=== PATIENT | female | born 1975 | race Caucasian/White ===

== ENCOUNTER 2025-08-14 19:36 | Emergency (ER) | payer MEDICAID ==
[~2025-08-14] VITALS: Ht 154.9 cm; Wt 63.0 kg
[2025-08-14 19:59] VITALS: TEMP 98.1
--- NOTE | 2025-08-14 20:15 | Physician Documentation ---
History of Present Illness Chief Complaint: Vomiting Stated Complaint: DEHYDRATION Time Seen by MD: 20:09 HPI 50-year-old female presents to the ED with a complaint of three days of nausea vomiting, abdominal pain chest pain body aches neck pain. She states she does not smoke marijuana does not drink excessive amounts of alcohol. States she is a diabetic he has never experienced gastroparesis denies any cardiac history. States her primary complaint is body pain nausea vomiting in his being unable to hold any fluids or food down Day of Onset: Aug 14, 2025 Medication Reconciliation Allergies: Coded Allergies: No Known Allergies (Unverified , 08/14/25) Scheduled PRN ONDANSETRON ODT 4mg tablet (Ondansetron Odt), 1 TAB PO Q6H PRN PRN for nausea/vomiting Review of Systems All Other Systems at this time: Reviewed and Negative ROS As stated above in the HPI, otherwise all systems are reviewed and negative. Physical Exam Vital Signs: Temperature: 98.1, Source: Oral, Heart Rate: 115, Respiratory Rate: 16, BP: 179/96, Pulse Oximetry: 95, Weight: 63.000 Oxygen Flow Rate: 0 Physical Exam General: Alert, no apparent distress. Respiratory: Lungs clear, no respiratory distress. Chest: No accessory muscle use. Cardiovascular: Tachycardic Gastrointestinal: Soft, did tender bowel sounds present Extremities: Normal range of motion, no deformity. Neurologic: Oriented x4. Psychiatric: Normal mood and affect. Skin: Normal color, warm and dry. No edema, no ecchymosis. Progress Results/Orders Results/Orders Vital Signs 08/14/25 19:59 Temp 98.1 Pulse 115 Resp 16 B/P (MAP) 179/96 Pulse Ox 95 O2 Flow Rate 0 Laboratory Tests Test 08/14/25 19:53 08/14/25 19:57 Urine Comment CBC Comment Chemistry Comments Medical Decision Making Additional information obtaine: old records Findings 50-year-old female labs were very reassuring with no signs liver enzyme elevation lipase elevation T bili was normal. Based on her complaint I suspect viral gastroenteritis. He received a fluid bolus antiemetics and reported improved symptoms Urinalysis was reassuring for any signs of infection. At this time I am going to discharge her with antiemetics and advice to increase fluid intake and rest Differential Dx:Considerations: Constipation, Ischemic bowel, Urinary obstruction, Urinary tract infection Departure Disposition: HOME / SELF CARE / HOMELESS Impression: Primary Impression: Viral gastroenteritis Condition: Stable Discharge Instructions: Viral Gastroenteritis, Adult Referrals: NO PRIMARY CARE PROVIDER (PCP) Prescriptions ONDANSETRON ODT 4mg tablet (ONDANSETRON ODT) 4 Mg Tab.rapdis 1 TAB PO Q6H PRN PRN for nausea/vomiting for 4 Days, #16 TAB 0 Refills Prov: JOMAR PATEL AUTO DAMAGE APPRAISER 08/14/25 Education Educated: Patient Educated regarding: diagnosis Signature Scribe Signature: david Attestation: Scribed for Jomar Patel Advertising Copy Writer by Jomar Patel - LADAN . 08/14/25 20:15 JOMAR PATEL AUTO DAMAGE APPRAISER Aug 14, 2025 20:15
[2025-08-14 20:19] LABS: URINE HCG NEGATIVE (NEG)
--- NOTE | 2025-08-14 20:20 | ELECTROCARDIOGRAPH REPORT ---
[facility] Test Date: 2025-08-14 Test Time: 20:17:32 Pat Name: JOSE ANGEL SCHWARZ Department: EMERGENCY ROOM Room: Gender: F Process Control Engineer: : [id number] Requested By: ARYAN DAVISON Order Number: [id number] Reading MD: Dr. Kenyon iRver Measurements Intervals [place] Rate: 108 P: 72 W[place]: 124 QRS: 87 QRSD: 95 T: 53 QT: 330 QTc: 443 Interpretive Statements Sinus tachycardia Low voltage, precordial leads Abnormal R-wave progression, early transition Minimal ST depression, inferior leads Electronically Signed On 08-15-2025 19:08:[address] Kenyon River Please click the below link to view image of tracing.
[2025-08-14 20:21] LABS: MEAN PLATELET VOLUME 7.6 FL (7.4-10.4); RED CELL DISTRIBUTION WIDTH 14.3 % (11.5-14.5)
[2025-08-14 20:22] LABS: LEUKOCYTE ESTERASE ,URINE NEGATIVE (Neg); NITRITES, URINE NEGATIVE (Neg); OCCULT BLOOD,URINE NEGATIVE (Neg)
[2025-08-14 20:25] LABS: UA COLLECTION TYPE CLN CATCH MIDSTREAM
[2025-08-14 20:37] LABS: CREATININE 0.67 MG/DL (0.40-0.90); PRO BRAIN NATRIURETIC PEPTIDE 47 PG/ML (0-125); TOTAL CARBON DIOXIDE 30.1 MMOL/L (24-32); eCRCL 74 ML/MIN; eGFR > 90 ML/MIN
[2025-08-14 20:42] LABS: SQUAMOUS EPITHELIAL CELL,UR FEW /LPF (FEW)
[2025-08-14 20:43] LABS: MUCUS STRANDS MODERATE /LPF (Neg); YEAST FEW /HPF (NEGATIVE)
[2025-08-14] MEDS: normal saline 1000ML IV soln IVB ONE (20:48)
[2025-08-14] MEDS: ondansetron/PF 4mg/2ml inj IV ONE (20:50)
[2025-08-14] MEDS: ketorolac trometh 15mg/ml vial 15 MG/ML ML IV ONE (21:21)
[2025-08-14] MEDS ORDERED: ONDA-243 PO (21:32)
[2025-08-14] MEDS: ondansetron 4mg rapidly disintigrating tab PO ONE (21:54)
[2025-08-14 21:57] VITALS: BP 154/83; PULSE 93; RESP 16; O2SAT 99
== END 2025-08-15 00:41 | disposition home or self-care (01) ==
LOC: ER 19:37
DX: A08.4 Viral intestinal infection, unspecified (principal); E11.9 Type 2 diabetes mellitus without complications; E86.0 Dehydration; R00.0 Tachycardia, unspecified; M54.2 Cervicalgia; R06.2 Wheezing
CPT/HCPCS: 36415; 80053; 81001; 81025; 82948; 83690; 83880; 84484; 85025; 93005; 96361; 96374; 96375; 99284; J1885; J2405; J7030

== ENCOUNTER 2025-08-19 15:06 | Emergency (ER) | payer MEDICAID ==
[~2025-08-19] VITALS: Ht 154.9 cm; Wt 63.5 kg
[~2025-08-19 15:06] MED LIST: ONDA-243 PO
[2025-08-19] MEDS: metoclopramide 5 mg/ml inj IV ONE (15:37)
[2025-08-19] MEDS: normal saline 1000ML IV soln IVB ONE (15:37)
[2025-08-19 15:39] LABS: MEAN PLATELET VOLUME 7.6 FL (7.4-10.4); RED CELL DISTRIBUTION WIDTH 14.0 % (11.5-14.5)
[2025-08-19 15:51] LABS: CREATININE 0.80 MG/DL (0.40-0.90); TOTAL CARBON DIOXIDE 29.4 MMOL/L (24-32); eCRCL 62 ML/MIN; eGFR 75 ML/MIN
--- NOTE | 2025-08-19 15:59 | Physician Documentation ---
History of Present Illness ~ Chief Complaint: Vomiting Stated Complaint: VOMITNG/BACK PAIN Time Seen by MD: 15:12 OK to notify your PCP?: Yes Primary Medical Doctor: [facility] Source: patient Mode of Arrival: Ambulatory Exam Limitations: no limitations HPI Presents for all over body pain and vomiting. She does have a history of chronic back pain with multiple back surgeries last surgery was 1 year ago. She reports that she was seen here recently and diagnosed with gastroenteritis and has been vomiting ever since. She reports that she was discharged with Zofran but that has been unhelpful. She reports that she is unable to keep her medications or water down. Reports that for her chronic back pain she does take Tylenol and a muscle relaxer, tried this morning but vomited back up. Medication Reconciliation Allergies: Coded Allergies: No Known Allergies (Unverified , 08/19/25) Scheduled PRN Metoclopramide Hcl* (Reglan*), 1-2 TAB PO Q6H PRN PRN for nausea/vomiting ONDANSETRON ODT 4mg tablet (Ondansetron Odt), 1 TAB PO Q6H PRN PRN for nausea/vomiting Review of Systems All Other Systems at this time: Reviewed and Negative Physical Exam Vital Signs: RN Vital Signs have been reviewed: Yes, Temperature: 97.8, Source: Temporal, Heart Rate: 91, Respiratory Rate: 18, BP: 143/84, Pulse Oximetry: 97, Weight: 63.500 Oxygen Flow Rate: 0 Pulse Oximetry Reflects: adequate oxygenation Physical Exam General: Alert, no apparent distress. HEENT: PERRL, EOMI, no injection, moist mucous membranes. Neck: Full range of motion. Respiratory: Lungs clear, no respiratory distress. Chest: No accessory muscle use. Cardiovascular: Regular rate and rhythm, no murmurs. Gastrointestinal: Soft, generalized tenderness, nondistended. Bowels sounds present. Extremities: Normal range of motion, no deformity. Neurologic: Oriented x4. Psychiatric: Normal mood and affect. Skin: Normal color, warm and dry. No edema, no ecchymosis. Progress Results/Orders Reviewed/noted all lab results: Yes Results/Orders Orders - CHRISTAL VARELA BLOCKMASON Urinalysis, Cult If Indicated (08/19/25 15:12) Hcg, Ur Ql (08/19/25 15:12) Ct Abdomen Pelvis (08/19/25 15:17) Completed Orders - CHRISTAL VARELA BLOCKMASON Cbc/Diff (08/19/25 15:12) Lipase (08/19/25 15:12) CMP (08/19/25 15:12) Metoclopramide Inj (Reglan Inj) (08/19/25 15:20) Normal Saline 1000ml (0.9% Sodium Chlori (08/19/25 15:20) Ct Abdomen Pelvis (08/19/25 15:17) Acetaminophen 1,000mg/100ml Iv (Ofirmev (08/19/25 15:55) Iohexol 300mg/Ml 100ml Inj. (Omnipaque-3 (08/19/25 16:00) Potassium Cl Sr Tablet (K-Dur Tablet) (08/19/25 17:11) Medications Received in ER Medications (Trade) Dose Ordered Sig/Flip Route PRN Reason Start Time Stop Time Status Last Admin Dose Admin (Reglan inj) 10 mg ONCE ONCE IV 08/19/25 15:20 08/19/25 15:24 DC 08/19/25 15:37 10 MG (0.9% sodium chloride (NS) 1000ml IV soln) 1,000 ml ONCE ONCE IVB 08/19/25 15:20 08/19/25 15:24 DC 08/19/25 15:37 1,000 ML Acetaminophen 100 ml @ 400 mls/hr ONCE ONCE IV 08/19/25 15:55 08/19/25 16:09 DC 08/19/25 16:15 400 MLS/HR (K-DUR tablet) 20 meq ONCE STAT PO 08/19/25 17:11 08/19/25 17:13 DC 08/19/25 17:16 20 MEQ Vital Signs 08/19/25 08/19/25 08/19/25 08/19/25 15:09 15:42 15:46 16:37 Temp 97.8 97.8 Pulse 93 91 93 Resp 16 18 16 B/P (MAP) 150/79 143/84 (103) 145/73 (97) Pulse Ox 97 97 96 O2 Flow Rate 0 0 0 08/19/25 16:54 Temp 97.8 Pulse 96 Resp 14 B/P (MAP) 134/76 (95) Pulse Ox 95 O2 Flow Rate 0 Laboratory Tests Test 08/19/25 15:26 White Blood Count 12.0 H Red Blood Count 4.90 Hemoglobin 15.0 Hematocrit 43.9 Mean Corpuscular Volume 89.5 Mean Corpuscular Hemoglobin 30.5 Mean Corpuscular Hemoglobin Concent 34.1 Red Cell Distribution Width 14.0 Platelet Count 381 Mean Platelet Volume 7.6 Neutrophils (%) (Auto) 71.7 Lymphocytes (%) (Auto) 21.2 Monocytes (%) (Auto) 6.0 Eosinophils (%) (Auto) 0.7 Basophils (%) (Auto) 0.4 Neutrophils # (Auto) 8.6 H Lymphocytes # (Auto) 2.6 Monocytes # (Auto) 0.7 Eosinophils # (Auto) 0.1 Basophils # (Auto) 0.0 CBC Comment Sodium Level 137 Potassium Level 3.3 L Chloride Level 101 Carbon Dioxide Level 29.4 Anion Gap 7 L Blood Urea Nitrogen 12 Creatinine 0.80 Estimated GFR/1.73 m2 75 BUN/Creatinine Ratio 15.0 Glucose Level 110 H Calcium Level 8.6 Total Bilirubin 0.3 Aspartate Amino Transf (AST/SGOT) 16 Alanine Aminotransferase (ALT/SGPT) 29 Alkaline Phosphatase 66 Total Protein 7.3 Albumin 3.8 Globulin 3.5 Albumin/Globulin Ratio 1.1 Lipase 23 Chemistry Comments EKG/XRAY/CT/US/VASC/MRI CT : Impression Abdominal pelvis CT with contrast as interpreted by me shows surgically absent gallbladder. Postsurgical changes in lower lumbar spine. No acute CT findings in the abdomen and pelvis. Medical Decision Making Additional information obtaine: old records, family Findings Physical exam is unremarkable. For chronic pain relief I have ordered IV Tylenol. For her nausea I ordered Reglan. Abdominal pain labs were ordered as well as a CT of abdomen and pelvis with contrast. I gave a 1 L bolus of normal saline to help with rehydration. At previous visit 5 days ago, she did not receive any imaging. CT of abdomen and pelvis with contrast shows no acute CT findings in the abdomen and pelvis. There is postsurgical changes of the lower lumbar spine and a surgically absent gallbladder. The Reglan helped for her nausea. Labs are unremarkable except for a WBC of 12.0 which is improved from previous 12.2. Neutrophils are slightly elevated. Potassium was 3.2 so I gave 20 mEq p.o. for placement. On reassessment, patient was resting comfortably. Discussed results with her and her . Diff Dx GI Bleed:Consideration: Include: Other Diff Dx Pain:Considerations: Include: AAA, Aortic dissection, Appendicitis, Bowel obstruction, Cholecystitis, Cholelithasis, Constipation, Diverticular disease, Inflammatory BD, Ischemic bowel, Pancreatitis Diff Dx N/V/D:Considerations: Include: Dehydration, Electrolyte imbalance, Food poisoning, Gastroenteritis Diff Dx Rectal:Considerations: Include: Other Departure Disposition: HOME / SELF CARE / HOMELESS Impression: Primary Impression: Vomiting Additional Impression: Hypokalemia Condition: Stable Discharge Instructions: Hypokalemia, Nausea and Vomiting, Adult Additional Instructions: Drink plenty of fluids. Take Reglan as needed for nausea and vomiting. Return back here for any new or worsening symptoms. Your CT scan was normal and your labs were reassuring, your potassium was little bit low which we did replace here in the department. With the primary care provider within the next week. Please eat potassium rich foods. Referrals: NO PRIMARY CARE PROVIDER (PCP) Prescriptions Metoclopramide Hcl* (Reglan*) 5 Mg Tablet 1-2 TAB PO Q6H PRN PRN for nausea/vomiting, #30 TAB Prov: CHRISTAL VARELA 08/19/25 Education Educated: Patient, Family Educated regarding: diagnosis, treatment, prognosis, need for follow up Additional Comment Medical Screen Exam This patient recieved a medical screening examination. After reviewing the individual's medical complaints with presenting symptoms and performing an appropriate physical examination, it was determined that no immediate life- threatening emergency medical condition is present. This individual is also not a women having contractions. Signature Scribe Signature: . Attestation: Scribed for Christal Varela by Christal Pham NP . 08/19/25 17:24 Parts of this note were created using [employer] voice recognition software program. While efforts were made to correct any mistakes made by this voice recognition software program, nonsensical phrases may remain in this note. In addition, there may be errors and syntax, grammar, content and spelling. CHRISTAL VARELA Aug 19, 2025 15:59
[2025-08-19] MEDS ORDERED: iohexol 300mg/ml 100ml inj. ONE (16:00)
[2025-08-19] MEDS: acetaminophen 1,000mg/100ml IV 100 ML IV ONE (16:15)
[2025-08-19 16:54] VITALS: TEMP 97.8
--- NOTE | 2025-08-19 17:03 | RADIOLOGY REPORT ---
Exam: CT CT ABDOMEN PELVIS W/ IV CONTRAST History: vomiting, abd pain x 1 week Comparison Study: None Exam Date: 08/19/2025 04:32 PM Radiation Dose Information: CT Dose: CTDI volume is 23 mGy. Dose-length product is 1156 mGy*cm Contrast: Type of contrast: Omnipaque 300 Contrast injected: 100 cc TECHNIQUE: During the uneventful, intravenous administration of contrast material, multislice data acquisition was obtained through the abdomen and pelvis. The data set was subsequently reconstructed into axial images. Images were reviewed on a work station using a combination of axial and multiplanar using a variety of window levels and settings. Findings: Lower chest: Trace pericardial effusion. Clear lungs. Liver: Unremarkable Biliary system: Surgically absent gallbladder with mildly dilated bile ducts, likely related to postcholecystectomy state Spleen: Unremarkable Pancreas: Unremarkable. Adrenals: Mild nodular thickening bilaterally. Kidneys and ureters: Normal renal enhancement. No hydronephrosis Bowel: No obstruction. Bladder: Unremarkable Reproductive organs: No abnormal mass. Lymph nodes: Unremarkable. Peritoneum: Unremarkable Vessels: Patent major intra-abdominal vasculature. Bones and soft tissue: No aggressive osseous lesion. Postsurgical changes in the lower lumbar spine. IMPRESSION: No acute CT findings in the abdomen and pelvis.
[2025-08-19] MEDS: potassium Cl 20 mEq SR tablet PO STA (17:16)
[2025-08-19] MEDS ORDERED: METO5TAB98 PO (17:26)
[2025-08-19 17:46] VITALS: BP 140/82; PULSE 104; RESP 18; O2SAT 93
== END 2025-08-19 17:48 | disposition home or self-care (01) ==
LOC: ER 15:06
DX: R11.0 Nausea (principal); E87.6 Hypokalemia; Z90.49 Acquired absence of other specified parts of digestive tract
CPT/HCPCS: 36415; 74160; 80053; 83690; 85025; 96361; 96365; 96375; 99285; J0131; J2765; J7030; Q9967